=== PATIENT | male | born 1980 | race Caucasian/White ===

== ENCOUNTER → 2022-01-02 13:57 | Outpatient (BNVA) | payer OTHER, SELFPAY | PROVIDERS: PCP Hospitalist; Visit Provider Surgery | DX: K42.9 Umbilical hernia without obstruction or gangrene (principal); E66.01 Morbid (severe) obesity due to excess calories; Z68.36 Body mass index [BMI] 36.0-36.9, adult | CPT/HCPCS: 99202 ==

== ENCOUNTER 2022-01-23 13:24 | Outpatient (REF) | payer OTHER, SELFPAY ==
[2022-01-23 14:24] LABS: Hematocrit 47.4 % (42.0-52.0); Hemoglobin 16.5 g/dl (14.0-18.0); Mean Corpuscular HGB Conc 34.8 g/dl (31.0-36.0); Mean Corpuscular Hemoglobin 31.6 pg (27.0-33.0); Mean Corpuscular Volume 90.8 fL (80.0-98.0); Mean Platelet Volume 11.1 fL (9.4-12.4); Platelet Count 214 X10*3/uL (160-400); Red Blood Count 5.22 X10*6/uL (4.60-5.80); White Blood Count 8.5 X10*3/uL (4.8-10.8)
[2022-01-23 14:45] LABS: Alanine Aminotransferase 76 U/L (0-40); Albumin Level 4.8 g/dL (3.5-5.0); Alkaline Phosphatase 65 U/L (39-117); Anion Gap 19 (12-20); Aspartate Amino Transferase 48 U/L (5-37); Bilirubin Total 0.9 mg/dL (0.0-1.0); Blood Urea Nitrogen 11 mg/dL (9-16); Calcium 9.6 mg/dL (8.4-10.2); Carbon Dioxide 22 mmol/L (22-29); Chloride 107 mmol/L (96-108); Cholesterol 236 mg/dL; Estimated Glomerular Filt Rate > 60; Glucose Fasting 99 mg/dL (60-99); HDL Cholesterol 40 mg/dL; LDL Cholesterol Calculated 119 mg/dl; Potassium 4.7 mmol/L (3.3-5.1); Sodium 143 mmol/L (135-145); Total Protein 8.1 g/dL (6.5-8.0); Triglycerides 386 mg/dL
[2022-01-23 14:56] LABS: TSH reflex Free T4 1.45 uIU/mL (0.32-4.0)
== END 2022-01-23 13:25 | disposition home or self-care (01) ==
LOC: HO.LAB 13:24
PROVIDERS: PCP Hospitalist; Visit Provider Hospitalist
DX: Z00.00 Encounter for general adult medical examination without abnormal findings (principal)
CPT/HCPCS: 36415; 80053; 80061; 84443; 85027

== ENCOUNTER → 2022-02-06 10:39 | Outpatient (BNVA) | payer OTHER, SELFPAY | PROVIDERS: PCP Hospitalist; Visit Provider Surgery | DX: K42.9 Umbilical hernia without obstruction or gangrene (principal); E66.01 Morbid (severe) obesity due to excess calories; R74.8 Abnormal levels of other serum enzymes; Z68.35 Body mass index [BMI] 35.0-35.9, adult; Z83.3 Family history of diabetes mellitus | CPT/HCPCS: 36415; 80076; 83036; 99212 ==

== ENCOUNTER 2022-02-06 11:06 | Outpatient (REF) | payer OTHER, SELFPAY ==
[2022-02-06 12:34] LABS: Estimated Average Glucose 97 mg/dL
[2022-02-06 12:47] LABS: Alanine Aminotransferase 58 U/L (0-40); Albumin Level 4.8 g/dL (3.5-5.0); Alkaline Phosphatase 70 U/L (39-117); Aspartate Amino Transferase 41 U/L (5-37); Bilirubin Direct < 0.2 mg/dL (0.0-0.5); Bilirubin Total 0.4 mg/dL (0.0-1.0); Total Protein 8.2 g/dL (6.5-8.0)
== END 2022-02-06 11:07 | disposition home or self-care (01) ==
LOC: HO.LAB 11:06
PROVIDERS: Hospitalist; Visit Provider Surgery
DX: Z13.89 Encounter for screening for other disorder (principal)
CPT/HCPCS: 36415; 80076; 83036

== ENCOUNTER → 2022-02-17 11:16 | Outpatient (BNVA) | payer OTHER, SELFPAY | PROVIDERS: PCP Hospitalist; Visit Provider Dietitian, Registered | DX: E66.9 Obesity, unspecified (principal) | CPT/HCPCS: 97802 ==

== ENCOUNTER → 2022-03-03 13:32 | Outpatient (BNVA) | payer OTHER, SELFPAY | PROVIDERS: PCP Hospitalist; Referring Provider Hospitalist; Visit Provider Surgery | DX: K42.9 Umbilical hernia without obstruction or gangrene (principal); E66.01 Morbid (severe) obesity due to excess calories; R74.8 Abnormal levels of other serum enzymes; Z83.3 Family history of diabetes mellitus; Z68.35 Body mass index [BMI] 35.0-35.9, adult | CPT/HCPCS: 99212 ==

== ENCOUNTER → 2022-03-26 05:54 | Day surgery (SDC) | payer OTHER, SELFPAY ==
[2022-03-20 10:07] VITALS: BMI 35.3
--- NOTE | 2022-03-25 11:43 | HO.ANESPROP2 ---
HPI - Anesthesia Eval Consult details Narrative: 41yo M for Hernia Repair Umbilical Laparoscopic with mesh PMFSH Active Problems Active Problems: All Active Problems (Updated 03/20/22 @ 10:07 by Adriana Broderick RN) Normal physical exam (Acute) Abdominal hernia (Acute) Umbilical hernia without obstruction and without gangrene (Acute) Morbid (severe) obesity due to excess calories (Acute) Elevated liver enzymes (Acute) FH: diabetes mellitus (Acute) Past Medical History Medical History (Updated 03/20/22 @ 10:07 by Adriana Broderick RN) Depression Surgical History Surgical History (Updated 03/20/22 @ 10:07 by Adriana Broderick RN) Broken femur History of facial surgery Social History Social History Household Members Other:: one son-minor Housing: Apartment Are you a primary direct care provider to a significant other at home: Yes Do you presently have visiting nurse or other home services: No Alcohol intake: current Alcohol intake frequency: holidays/special occasions only Patient Tobacco Use Status: Former Tobacco user Quit Date: 2019 Tobacco use type: Cigarette Years Smoked: 10 e-Cigarette/Vaping Use: Never Used Second Hand Smoke Exposure: No Use of substances other than those prescribed or required for medical reasons: Yes Substance Use Type Other:: has not used in about one month (as of 03/20/22) Substance Use Frequency: Occasionally Have you been hit, kicked, punched, or otherwise hurt by someone within the past year? If so, by whom?: No Are you DNR?: No Advance Directives: No Advance Directives Information Provided: Yes (brochure mailed) Advance Directives on File: No Recently lost weight without trying: No Eating poorly because of decreased appetite: No Nutrition Risks: No Nutritional Risk Poor oral hygiene: No (has some chipped teeth) service: No Current occupational status: unemployed (laid off) Current occupational exposures/hazards: No Cognitive needs: No Hearing needs: No Vision needs: No Meds Allergies Allergy/AdvReac Type Severity Reaction Status Date / Time acetaminophen [From Vicodin] Allergy Intermediate Vomiting Verified 03/20/22 09:51 hydrocodone [From Vicodin] Allergy Intermediate Vomiting Verified 03/20/22 09:51 Home Medications Medication Instructions Recorded Confirmed Last Taken Type No Known Home Meds 12/24/21 03/20/22 Unknown History Exam Exam Date and Time: March 25, 2022 1143 Height,Weight and Vital Signs: Height 5 ft 7 in Weight 102.4 kg Pertinent Lab Results Pertinent Lab Results: Laboratory Tests 01/23/22 01/23/22 13:31 13:31 WBC 8.5 Hgb 16.5 Hct 47.4 Plt Count 214 Sodium 143 Potassium 4.7 Chloride 107 Carbon Dioxide 22 BUN 11 Creatinine 1.01 Assessment and Plan Assessment Anesthesia Assessment: Chart Reviewed
[2022-03-26 06:26] VITALS: BP 133/79; PULSE 74; RESP 18; TEMP 36.6; O2SAT 95
[2022-03-26] MEDS: Lactated Ringers 1,000 ML 100 ML IVCONT (06:26)
--- NOTE | 2022-03-26 06:59 | PC.NURSE ---
IV attempt and insertion completed by aylin vo rn
--- NOTE | 2022-03-26 07:16 | PC.NURSE ---
Author asked Dr. Landeros to assess rash on lower right abdomen. cancelled procedure. IV removed - site WNL. Patient calling ride and leaving now.
--- NOTE | 2022-03-26 07:22 | PM.EVENT ---
Event Note Date of Service: 03/26/22 Event Note: The patient is seen and identified in preoperative holding. Patient seems to have for gotten that he should not be shaving his general area and has numerous pustules and a significant rash in his left groin. Given the need to implant a polypropylene mesh, patient is again advised to stop shaving and should contact the office for re-evaluation prior to rescheduling surgery.
== END | disposition home or self-care (01) ==
PROVIDERS: PCP Hospitalist; Visit Provider Surgery
DX: K42.9 Umbilical hernia without obstruction or gangrene (principal); Z53.8 Procedure and treatment not carried out for other reasons; R21 Rash and other nonspecific skin eruption
CPT/HCPCS: J0690; J2795

== ENCOUNTER → 2022-04-09 12:54 | Outpatient (BNVA) | payer OTHER, SELFPAY | PROVIDERS: PCP Hospitalist; Visit Provider Surgery | DX: K42.9 Umbilical hernia without obstruction or gangrene (principal); E66.01 Morbid (severe) obesity due to excess calories; R74.8 Abnormal levels of other serum enzymes | CPT/HCPCS: 99212 ==

== ENCOUNTER 2022-04-23 07:07 | Day surgery (SDC) | payer OTHER, SELFPAY ==
--- NOTE | 2022-04-22 09:45 | P.CONAN_ITS ---
Documented by User: Maryanne Cedillo NP 04/22/22 09:46 HPI - Anesthesia Eval Consult details Narrative: 42yo M for Hernia Repair Umbilical Laparoscopic with mesh previously cancelled d/t rash at surgical site PMFSH Active Problems Active Problems: All Active Problems (Updated 03/20/22 @ 10:07 by Adriana Broderick RN) Normal physical exam (Acute) Abdominal hernia (Acute) Umbilical hernia without obstruction and without gangrene (Acute) Morbid (severe) obesity due to excess calories (Acute) Elevated liver enzymes (Acute) FH: diabetes mellitus (Acute) Past Medical History Medical History Depression Surgical History Surgical History Broken femur History of facial surgery Social History Social History Household Members Other:: one son-minor Housing: Apartment Are you a primary nursing care attendant to a significant other at home: Yes Do you presently have visiting nurse or other home services: No Alcohol intake: current Alcohol intake frequency: holidays/special occasions only Patient Tobacco Use Status: Former Tobacco user Quit Date: 1 year ago Tobacco use type: Cigarette Years Smoked: 10 e-Cigarette/Vaping Use: Never Used Patient Given Instructions on How to Stop Smoking: Yes Date Education Initiated: 04/23/22 Use of substances other than those prescribed or required for medical reasons: Yes Are you DNR?: No Advance Directives: No Advance Directives Information Provided: Yes service: No Current occupational status: unemployed (laid off) Current occupational exposures/hazards: No Cognitive needs: No Hearing needs: No Vision needs: No Meds Allergies Allergy/AdvReac Type Severity Reaction Status Date / Time acetaminophen [From Vicodin] Allergy Intermediate Vomiting Verified 04/09/22 12:58 hydrocodone [From Vicodin] Allergy Intermediate Vomiting Verified 04/09/22 12:58 Exam Exam Date and Time: April 22, 2022 0945 Pertinent Lab Results Pertinent Lab Results: Laboratory Tests 01/23/22 01/23/22 13:31 13:31 WBC 8.5 Hgb 16.5 Hct 47.4 Plt Count 214 Sodium 143 Potassium 4.7 Chloride 107 Carbon Dioxide 22 BUN 11 Creatinine 1.01 Assessment and Plan Assessment Anesthesia Assessment: Chart Reviewed Documented by User: Rodríguez Tristan MD 04/23/22 08:58 [facility] Past Medical History Medical History Depression Family History Family history of problems with anesthesia: No Surgical History Surgical History Broken femur History of facial surgery History of Problems with Anesthesia: No Social History Social History Household Members Other:: one son-minor Housing: Apartment Are you a primary nursing care attendant to a significant other at home: Yes Do you presently have visiting nurse or other home services: No Alcohol intake: current Alcohol intake frequency: holidays/special occasions only Patient Tobacco Use Status: Former Tobacco user Quit Date: 1 year ago Tobacco use type: Cigarette Years Smoked: 10 e-Cigarette/Vaping Use: Never Used Patient Given Instructions on How to Stop Smoking: Yes Date Education Initiated: 04/23/22 Use of substances other than those prescribed or required for medical reasons: Yes Are you DNR?: No Advance Directives: No Advance Directives Information Provided: Yes service: No Current occupational status: unemployed (laid off) Current occupational exposures/hazards: No Cognitive needs: No Hearing needs: No Vision needs: No Meds Allergies Allergy/AdvReac Type Severity Reaction Status Date / Time acetaminophen [From Vicodin] Allergy Intermediate Vomiting Verified 04/09/22 12:58 hydrocodone [From Vicodin] Allergy Intermediate Vomiting Verified 04/09/22 12:58 Exam Airway Mallampati Class: II TM Dist: >3cm Neck ROM: Limited Loose/Missing/Broken Teeth: No Heart: rrr Assessment and Plan Final Anesthetic Review Family History of Problems with Anesthesia: No History of Problems with Anesthesia: No NPO: Yes ASA Class: II Final Preanesthetic Review: Meds/Allgs Chart Reviewed, Consent Obtained/Reviewed and Anes Risks/Benef Reviewed Patient Risk: Intermediate Procedure Risk: Intermediate Anesthetic Plan Anesthetic Plan: GA Disposition: Standard PACU
[2022-04-23] VITALS (10 sets, daily range): BP systolic 123–168; BP diastolic 57–91; PULSE 68–77; RESP 14–20; TEMP 36.3–36.5; O2SAT 94–98; BMI 34.0
[2022-04-23] MEDS: Lactated Ringers 1,000 ML 100 ML IVCONT (07:56)
--- NOTE | 2022-04-23 08:18 | MHC.SHP ---
Pre-Procedural Eval Section A Date of Service: 04/23/22 The patient is an INPATIENT: No The History & Physical has been completed within 30 days and I have reviewed it.: Yes Section B Chief Complaint: Umbilical hernia without obstruction or gangrene Allergies: Allergies Allergy/AdvReac Type Severity Reaction Status Date / Time acetaminophen [From Vicodin] Allergy Intermediate Vomiting Verified 04/09/22 12:58 hydrocodone [From Vicodin] Allergy Intermediate Vomiting Verified 04/09/22 12:58 Plan I have reviewed the history and physical and performed a pertinent physical examination on my patient. No changes have occurred unless specified. Time Spent With Patient Time: Total time managing care of this patient today ____ minutes.
--- NOTE | 2022-04-23 08:20 | P.OP_ITS ---
Operative Note Operative Note Date of Service: 04/23/22 Narrative: Preop diagnosis: [Umbilical hernia] Postop diagnosis: [same] Procedure: [Laparoscopic umbilical hernia repair with Echo mesh] Surgeon: Zhao Landeros MD Assist: [none] Anesthesia: [general; local: bupivicaiine, 0.5% with epi] Estimated blood loss: [3cc] Specimen: [none] Intraoperative findings: [Viable properitoneal fat and umbilical skin. Primary closure with 0 absorbable V lock was performed with 4 in x 6 in echo mesh IPOM technique with absorbable tacks] Indications: [The patient is a 42-year-old gentleman with a history of obesity and nicotine use with a symptomatic umbilical hernia. The patient is currently not employed. The hernia has become symptomatic and following nicotine cessation and weight loss, he wanted to have the hernia repaired. Activity restrictions were discussed with the patient as well as the option of continued observation and 2nd opinion. The inherent risks to a laparoscopic umbilical hernia repair with mesh were reviewed and include but are not limited to: Bleeding, infection, hernia recurrence, especially in the setting of weight gain, intra-abdominal organ injury, mesh complications that could require reoperation, anesthesia related complications, DVT/PE, chronic pain issues and activity restrictions were all reviewed. The patient seemed understand his options and wanted to proceed with surgery. Postoperative pain management was discussed with the patient including the use of [id number] Tylenol and ibuprofen. The patient notes he has previously had oxycodone and tolerated it.] Procedure: [The patient was identified by myself in the preoperative holding area in an operating room 3. Patient had voided his urinary bladder fuel injection servicer, have sequential compression stockings in place. Ancef, 2 g IV were administered to the patient. The patient was induced in general endotracheal anesthesia administered with excellent effect. The abdomen was then widely prepped with ChloraPrep and an appropriate time-out performed. The patient was draped in usual manner preemptive local was used at all trocar insertion sites. I began in the left upper quadrant, made a oblique skin incision and placed a Veress needle without incident. An appropriate drop test was performed and a pneumoperitoneum of 15 mmHg obtained using carbon dioxide. Next, at the level of the umbilicus, additional local was infiltrated and a 5 mm Optiview trocar used to access the abdomen using a 30 degree 5 mm laparoscopic without incident. Upon entering the abdomen, the Veress needle was identified there was no evidence of injury from it, consequently was removed. Next, 12 mm port was placed in the left upper quadrant under direct laparoscopic vision. Lastly, a left lower quadrant trocar was placed with preemptive local and direct laparoscopic vision. Umbilical hernia was identified and a 5 mm LigaSure used to dissect the surrounding properitoneal fat to allow primary closure with 0 V lock absorbable suture of the hernia defect. Next, an echo mesh measuring 4 x 6 in was inserted through the 12 mm trocar and deployed and brought through a stab incision at the superior aspect of the umbilicus. After inflating the mesh was drawn to the abdomen an absorbable tacks used to secure the mesh with the abdomen deflated to 10 mmHg. An additional 5 mm trocar was require in the patient's right abdomen to place tacks and the patient's left hernia mesh repair. The green buttress from the echo mesh was withdrawn through the 12 mm port. After inspecting for hemostasis, the 12 mm port was withdrawn and is 0 Polysorb suture and suture passer used to close the 12 mm fascial defect. Abdomen was deflated and trocars removed. The 12 mm port fascial suture was tied and skin closed with 4-0 Monocryl subcuticular sutures. Abdomen was washed and dried, benzoin a nd Steri-Strips applied followed by cotton ball and Tegaderm in the umbilicus. Band-Aids were applied to the other incision sites. Patient tolerated the procedure well and was sent extubated the recovery in stable condition. All sponge instrument counts were correct At the patient's request, I contacted Lolly at [phone] and advised her of the operation as requested by the patient. Her questions seemed to be satisfactorily answered.]
--- NOTE | 2022-04-23 08:31 | HO.ANESPROP2 ---
[facility] Active Problems Active Problems: All Active Problems (Updated 03/20/22 @ 10:07 by Adriana Broderick RN) Normal physical exam (Acute) Abdominal hernia (Acute) Umbilical hernia without obstruction and without gangrene (Acute) Morbid (severe) obesity due to excess calories (Acute) Elevated liver enzymes (Acute) FH: diabetes mellitus (Acute) Past Medical History Medical History Depression Surgical History Surgical History Broken femur History of facial surgery Social History Social History Household Members Other:: one son-minor Housing: Apartment Are you a primary healthcare administration internship to a significant other at home: Yes Do you presently have visiting nurse or other home services: No Alcohol intake: current Alcohol intake frequency: holidays/special occasions only Patient Tobacco Use Status: Former Tobacco user Quit Date: 1 year ago Tobacco use type: Cigarette Years Smoked: 10 e-Cigarette/Vaping Use: Never Used Patient Given Instructions on How to Stop Smoking: Yes Date Education Initiated: 04/23/22 Use of substances other than those prescribed or required for medical reasons: Yes Are you DNR?: No Advance Directives: No Advance Directives Information Provided: Yes service: No Current occupational status: unemployed (laid off) Current occupational exposures/hazards: No Cognitive needs: No Hearing needs: No Vision needs: No Meds Allergies Allergy/AdvReac Type Severity Reaction Status Date / Time acetaminophen [From Vicodin] Allergy Intermediate Vomiting Verified 04/09/22 12:58 hydrocodone [From Vicodin] Allergy Intermediate Vomiting Verified 04/09/22 12:58 Active Medications: Current Medications Lactated Ringer's (Lr) 1,000 mls @ 100 mls/hr IVCONT .Q10H ALEXANDRA Last Admin: 04/23/22 07:56 Dose: 100 mls/hr Lactated Ringer's (Lr) 1,000 mls @ 100 mls/hr IVCONT .Q10H ALEXANDRA Exam Exam Date and Time: April 23, 2022 0831 Height,Weight and Vital Signs: Height 5 ft 7 in Weight 98.43 kg Last Vital Signs Temp 97.3 F 04/23/22 07:20 Pulse 68 04/23/22 07:20 Resp 18 04/23/22 07:20 BP 168/91 H 04/23/22 07:20 Pulse Ox 98 04/23/22 07:20 O2 Del Method 04/23/22 07:20
[2022-04-23] MEDS: ondansetron HCL 4 MG/2 ML VIAL IVPUSH (10:58)
[2022-04-23] MEDS: oxyCODONE HCl Immed Release 5 MG TABLET PO (10:58)
== END 2022-04-23 12:50 | disposition home or self-care (01) ==
LOC: HO.SSS 07:07
PROVIDERS: PCP Hospitalist; Visit Provider Surgery
PROC: 0WQF4ZZ Repair Abdominal Wall, Percutaneous Endoscopic Approach (ICD-10-PCS; CPT 49593; principal; 2022-04-23 08:40)
DX: K42.9 Umbilical hernia without obstruction or gangrene (principal); F32.A Depression, unspecified; E66.01 Morbid (severe) obesity due to excess calories; Z68.35 Body mass index [BMI] 35.0-35.9, adult; R74.8 Abnormal levels of other serum enzymes; Z88.8 Allergy status to other drugs, medicaments and biological substances; Z98.890 Other specified postprocedural states; Z87.891 Personal history of nicotine dependence
CPT/HCPCS: 49593; C1781; J0690; J1100; J1885; J2370; J2405; J3010

== ENCOUNTER → 2022-05-01 10:58 | Outpatient (BNVA) | payer OTHER, SELFPAY | PROVIDERS: PCP Hospitalist; Visit Provider Surgery | DX: Z13.89 Encounter for screening for other disorder (principal) ==